=== PATIENT | female | born 2000 | race Caucasian/White ===

== ENCOUNTER 2022-09-27 21:58 | Emergency (ER) | payer BC ==
[2022-09-27] MEDS ORDERED: Sodium Chloride 0.9% 1,000 ML IV ONE (23:04)
[2022-09-27] MEDS ORDERED: Ondansetron 4 MG/2 ML SDV IVPUSH ONE (23:04)
[2022-09-27] MEDS ORDERED: Ketorolac 30 MG/ML SDV IVPUSH ONE (23:04)
[2022-09-27 23:52] LABS: CARBON DIOXIDE,CO2 24.2 mmol/L (21.0-32.0); POTASSIUM,K 4.1 mmol/L (3.5-5.1)
[2022-09-28 00:12] LABS: CORONAVIRUS COVID-19 NAA NEGATIVE (NEGATIVE); INFLUENZA A NAA NEGATIVE (NEGATIVE); INFLUENZA B NAA NEGATIVE (NEGATIVE)
[2022-09-28] MEDS ORDERED: Loperamide 2 MG Cap PO ONE (00:37)
[2022-09-28] MEDS ORDERED: Nitrofurantoin Macrocrystal 50 MG Cap PO ONE (00:38)
== END 2022-09-28 00:54 | disposition home or self-care (01) ==
LOC: MW.ED 21:58
DX: N39.0 Urinary tract infection, site not specified (principal); Z88.2 Allergy status to sulfonamides; Z79.899 Other long term (current) drug therapy; Z20.822 Contact with and (suspected) exposure to COVID-19
CPT/HCPCS: 0240U; 36415; 71045; 80053; 81001; 81025; 83690; 85025; 87086; 96361; 96374; 96375; 99284; A9270; J1885; J2405; J7030

== ENCOUNTER 2024-04-25 06:51 | Day surgery (SDC) | payer BC ==
[~2024-04-25 06:51] MED LIST: Sodium Chloride 0.9% 10 ML Syringe FLUSH PRN; Sodium Chloride 0.9% 2.5 ML Syringe FLUSH PRN; Sodium Chloride 0.9% 20 ML SDV IV PRN; ceFAZolin 2 GM in Sodium Chloride 0.9% 50 ML IV ONE
[2024-04-25] MEDS ORDERED: Bupivacaine 0.5% 30 ML SDV ONE (07:10)
[2024-04-25] MEDS ORDERED: Naloxone 0.4 MG/ML SDV IVPUSH PRN (07:17)
[2024-04-25] MEDS ORDERED: Metoclopramide 10 MG/2 ML SDV IVPUSH PRN (07:17)
[2024-04-25] MEDS ORDERED: droPERidol 5 MG/2 ML SDV IVPUSH PRN (07:17)
[2024-04-25] MEDS ORDERED: fentaNYL 50 MCG/ML SDV IVPUSH PRN (07:17)
[2024-04-25] MEDS ORDERED: HYDROmorphone 1 MG/ML Syringe IVPUSH PRN (07:17)
[2024-04-25] MEDS ORDERED: Ondansetron 4 MG/2 ML SDV IVPUSH PRN (07:17)
[2024-04-25] MEDS ORDERED: Albuterol 0.083% 2.5 MG/3 ML Neb Soln NEB PRN (07:17)
[2024-04-25] MEDS ORDERED: Morphine 2 MG/ML SYRINGE IVPUSH PRN (07:17)
[2024-04-25] MEDS ORDERED: Sugammadex Sodium 200 MG/2 ML VIAL IV ONE (07:24)
[2024-04-25] MEDS ORDERED: Rocuronium Bromide 50 MG/5 ML Syringe ONE (07:24)
[2024-04-25] MEDS ORDERED: Dexamethasone 4 MG/ML 5 ML MDV ONE (07:24)
[2024-04-25] MEDS ORDERED: Lidocaine 2% 5 ML SDV ONE (07:24)
[2024-04-25] MEDS ORDERED: Propofol 200 MG/20 ML SDV ONE (07:24)
[2024-04-25] MEDS ORDERED: Ketorolac 30 MG/ML SDV ONE (07:24)
[2024-04-25] MEDS ORDERED: Ondansetron 4 MG/2 ML SDV ONE (07:24)
[2024-04-25] MEDS ORDERED: fentaNYL 100 MCG/2 ML SDV ONE ×2 (07:25→08:39)
[2024-04-25] MEDS ORDERED: ceFAZolin 2 GM Vial ONE ×2 (07:26→08:20)
[2024-04-25] MEDS ORDERED: Ropivacaine 0.5% 5 MG/ML 30 ML SDV ONE (07:33)
[2024-04-25] MEDS ORDERED: EPINEPHrine 1 MG/1 ML Amp ONE ×2 (07:33→07:34)
[2024-04-25] MEDS ORDERED: Bupivacaine 0.25% 30 ML SDV ONE (07:33)
[2024-04-25] MEDS: Lactated Ringers 1,000 ML IV SCH (07:47)
[2024-04-25] MEDS ORDERED: metroNIDAZOLE/Normal Saline 100 ML ONE (08:06)
[2024-04-25] MEDS ORDERED: diphenhydrAMINE 50 MG/ML SDV ONE (08:23)
[2024-04-25] MEDS ORDERED: Ketamine HCL/NACL, ISO-OSM 50 MG/5 ML Syringe ONE (08:29)
== END 2024-04-25 11:30 | disposition home or self-care (01) ==
LOC: MW.SDS 06:51
PROVIDERS: ATTEND Surgery
DX: K82.8 Other specified diseases of gallbladder (principal); K21.9 Gastro-esophageal reflux disease without esophagitis; Z79.899 Other long term (current) drug therapy; Z88.2 Allergy status to sulfonamides
CPT/HCPCS: 47562; 64488; 81025; J0131; J0171; J0665; J0690; J1100; J1200; J1836; J1885; J2405; J2704; J2795; J3010; J3490; J7120; 00790

== ENCOUNTER 2024-11-04 19:54 | Emergency (ER) | payer BC | END 2024-11-04 22:24 | disposition home or self-care (01) | LOC: MW.ED 19:54 | DX: M79.89 Other specified soft tissue disorders (principal); Z32.02 Encounter for pregnancy test, result negative; E66.9 Obesity, unspecified; Z88.2 Allergy status to sulfonamides; Z75.8 Other problems related to medical facilities and other health care; Z68.37 Body mass index [BMI] 37.0-37.9, adult | CPT/HCPCS: 81025; 93970; 93970-26; 99284 ==